=== PATIENT | female | born 1940 | race Caucasian/White ===

== ENCOUNTER 2016-12-23 09:56 | Outpatient (CLI) | payer OTHER | END 2016-12-23 19:26 | disposition home or self-care (01) | LOC: SRD 09:56 | PROVIDERS: ATTEND Internal Medicine | DX: S69.92XA Unspecified injury of left wrist, hand and finger(s), initial encounter (principal); M19.042 Primary osteoarthritis, left hand; X58.XXXA Exposure to other specified factors, initial encounter; Y93.89 Activity, other specified; Y92.89 Other specified places as the place of occurrence of the external cause; Y99.8 Other external cause status ==

== ENCOUNTER 2017-01-20 09:36 | Outpatient (CLI) | payer OTHER | END 2017-01-20 21:14 | disposition home or self-care (01) | LOC: SRD 09:36 | PROVIDERS: ATTEND Internal Medicine | DX: M47.892 Other spondylosis, cervical region (principal) | CPT/HCPCS: 72050-TC ==

== ENCOUNTER 2019-04-12 10:45 | Outpatient (CLI) | payer OTHER | END 2019-04-12 14:49 | disposition home or self-care (01) | LOC: SRD 10:45 | PROVIDERS: ATTEND Internal Medicine | DX: M19.031 Primary osteoarthritis, right wrist (principal) ==

== ENCOUNTER 2021-05-24 11:16 | Outpatient (CLI) | payer OTHER | END 2021-05-24 20:12 | disposition home or self-care (01) | LOC: SRD 11:16 | PROVIDERS: ATTEND Internal Medicine | DX: Z12.31 Encounter for screening mammogram for malignant neoplasm of breast (principal) | CPT/HCPCS: 77067 ==